=== PATIENT | female | born 1980 | race Caucasian/White ===

== ENCOUNTER 2021-01-16 19:36 | Emergency (ER) | payer BC ==
[2021-01-16] MEDS ORDERED: Diphtheria,Pertussis(Acell),Tetanus Vaccine 0.5 ML Syringe IM ONE (21:16)
[2021-01-16] MEDS ORDERED: Cephalexin 500 MG Cap PO ONE (21:18)
--- NOTE | 2021-01-16 21:25 | EDM.PDOC ---
ED HPI GENERAL MEDICAL PROBLEM - General Stated Complaint: DOG BIT POSSIBLE STITCHES Time Seen by Provider: 01/16/21 20:00 Source of Information: Reports: Patient History Limitations: Reports: No Limitations - History of Present Illness INITIAL COMMENTS - FREE TEXT/NARRATIVE: c/o dog bite pt visiting a friend, each owned a dog, one dog growled at the other, pt put her leg between them and friend's dog bit here friend here, dog's vax UTD, police took photos and report last Td unknown works [employer], off work tomorrow right ankle Pain Score (Numeric/FACES): 7 - Related Data Allergies Allergy/AdvReac Type Severity Reaction Status Date / Time No Known Allergies Allergy Verified 01/16/21 19:55 Home Meds: Home Meds cephALEXin [Cephalexin] 500 mg PO TID #15 tablet 01/16/21 [Rx] Past Medical History Neurological History: Reports: Seizure Psychiatric History: Reports: Anxiety, Depression Social & Family History - Tobacco Use Tobacco Use Status *Q: Current Every Day Tobacco User Years of Tobacco use: 30 Packs/Tins Daily: 0.5 ED ROS GENERAL - Review of Systems Review Of Systems: See Below Constitutional: Reports: No Symptoms HEENT: Reports: No Symptoms Respiratory: Reports: No Symptoms Cardiovascular: Reports: No Symptoms Endocrine: Reports: No Symptoms GI/Abdominal: Reports: No Symptoms : Reports: No Symptoms Musculoskeletal: Reports: No Symptoms Skin: Reports: Wound Neurological: Reports: No Symptoms Psychiatric: Reports: No Symptoms Hematologic/Lymphatic: Reports: No Symptoms Immunologic: Reports: No Symptoms ED EXAM, SKIN/RASH Exam: See Below Exam Limited By: No Limitations General Appearance: Alert, WD/WN, No Apparent Distress Extremities: Other (RLE with 2 lacs on medial aspect of 6 cm and 4 cm, gap, adipose tissue protruding, 3 excoriations inbetwee,) Comments: medial lacs x 2 repaired, 2% lido with epi, #30 needle, cleaned x 12 with gauze and NS, no fb, horizontal mattress x 4 and x 2 with puckered edges and good apposition including aligning tattoo lateral lacs x 2, also ~15 cm above ankle, 5 and 3 cm's length, gap, 2% lido with epi and NS clean as above, horizontal mattress x 2 and x 1 with good apposition of margins, one edge closed further with a single simple suture 3-0 Prolene used tolerated well Course - Vital Signs Last Recorded V/S: Last Vital Signs Temp 36.6 C 01/16/21 19:36 Pulse 75 01/16/21 19:36 Resp 16 01/16/21 19:36 BP 109/75 01/16/21 19:36 Pulse Ox 97 01/16/21 19:36 - Orders/Labs/Meds Orders: Active Orders 24 hr Category Date Time Status Vaccines to be Administered [RC] PER UNIT ROUTINE Care 01/16/21 21:16 Active Meds: Medications Discontinued Medications Generic Name Dose Route Start Last Admin Trade Name Freq PRN Reason Stop Dose Admin Diphtheria/Tetanus/Acell Pertussis 0.5 ml 01/16/21 21:16 Diphtheria,Pertussis(Acell),Tetanus Vaccine 0.5 Ml Syringe IM 01/16/21 21:17 .ONCE ONE - Re-Assessments/Exams Free Text/Narrative Re-Assessment/Exam: 01/16/21 21:25 will use antbx given depth and extent and dog pt to cover with drsg and Levi Departure - Departure Time of Disposition: 21:25 Disposition: Home, Self-Care 01 Condition: Good Clinical Impression: Dog bite, Lacerations of multiple sites of right leg - Discharge Information *PRESCRIPTION DRUG MONITORING PROGRAM REVIEWED*: Not Applicable *COPY OF PRESCRIPTION DRUG MONITORING REPORT IN PATIENT JEANETTE: Not Applicable Instructions: Animal Bite, Adult, Laceration Care, Adult Referrals: Tami Edwards PA [Primary Care Provider] - Additional Instructions: Keep clean and dry and covered with a dressing and Levi wrap. Limit walking. To decrease risk of infection, take cephalexin 500 mg 1 tab 3 times a day for 5 days. See your physician in one week to remove sutures. However, see a physician the same day for any increase in redness, swelling, drainage, warmth or fever. Sepsis Event Note (ED) - Evaluation Sepsis Screening Result: No Definite Risk - Focused Exam Vital Signs: Vital Signs Temp Pulse Resp BP Pulse Ox 01/16/21 19:36 36.6 C 75 16 109/75 97 - My Orders Last 24 Hours: My Active Orders 01/16/21 21:16 Vaccines to be Administered [RC] PER UNIT ROUTINE - Assessment/Plan Last 24 Hours: My Active Orders 01/16/21 21:16 Vaccines to be Administered [RC] PER UNIT ROUTINE
== END 2021-01-16 21:45 | disposition home or self-care (01) ==
LOC: FB.ED 19:36
DX: S81.851A Open bite, right lower leg, initial encounter (principal); Z23 Encounter for immunization; Z72.0 Tobacco use; W54.0XXA Bitten by dog, initial encounter
CPT/HCPCS: 12005; 90471; 90715; 99283; A9270

== ENCOUNTER 2022-09-01 19:49 | Emergency (ER) | payer BC ==
[2022-09-01] MEDS ORDERED: Acetaminophen/oxyCODONE 325-5 MG Tab PO ONE (19:50)
[2022-09-01] MEDS ORDERED: Ketorolac 30 MG/ML SDV IM ONE (20:07)
== END 2022-09-01 22:04 | disposition home or self-care (01) ==
LOC: FB.ED 19:49
DX: S92.045A Nondisplaced other fracture of tuberosity of left calcaneus, initial encounter for closed fracture (principal); W18.40XA Slipping, tripping and stumbling without falling, unspecified, initial encounter; Y92.009 Unspecified place in unspecified non-institutional (private) residence as the place of occurrence of the external cause
CPT/HCPCS: 73630-LT; 73700-LT; 96372; 99284; A9270-GY; J1885